=== PATIENT | female | born 1995 | race American Indian/Alaskan Native ===

== ENCOUNTER 2017-01-18 09:58 | Emergency (ER) | payer BC ==
[2017-01-18 10:16] VITALS: O2SAT 100
[2017-01-18 10:34] LABS: RBC URINE < 1 /hpf (0-3); URINE BILIRUBIN NEGATIVE (NEGATIVE); URINE BLOOD NEGATIVE (NEGATIVE); URINE COLOR Yellow (YELLOW); URINE GLUCOSE (UA) NORMAL (Normal); URINE KETONE NEGATIVE (NEGATIVE); URINE LEUKOCYTE ESTERASE NEG Leu/uL (Negative); URINE PROTEIN NEGATIVE (NEGATIVE); WBC URINE < 1 /hpf (0-5)
--- NOTE | 2017-01-18 10:39 | C.PDOC ---
History Of Present Illness 21 yr old female presents to the ER for evaluation of abdominal pain for the past 2-3 weeks. Patient states the pain is mainly lower abdominal. reports she is sexually active, rarely uses protection and last LMP was December 15. Patient denies direct trauma, fever, chills, nausea, vomiting, diarrhea, dysuria , hematuria, back pain, weakness or numbness. Time Seen by Provider: 01/18/17 10:11 Chief Complaint (Nursing): Abdominal Pain History Per: Patient History/Exam Limitations: no limitations Onset/Duration Of Symptoms: Persistent (2-3 weeks) Severity: None Location Of Pain/Discomfort: Diffuse, RLQ, LLQ Past Medical History Reviewed: Historical Data, Nursing Documentation, Vital Signs Vital Signs: Last Vital Signs Temp 98.5 F 01/18/17 11:19 Pulse 95 H 01/18/17 11:19 Resp 22 01/18/17 11:19 BP 125/81 01/18/17 11:19 Pulse Ox 100 01/18/17 11:19 - Medical History PMH: No Chronic Diseases Family History: States: No Known Family Hx - Social History Hx Alcohol Use: No Hx Substance Use: No Review Of Systems Except As Marked, All Systems Reviewed And Found Negative. Constitutional: Negative for: Fever, Chills Gastrointestinal: Positive for: Abdominal Pain. Negative for: Nausea, Vomiting , Diarrhea Genitourinary: Negative for: Dysuria, Hematuria Musculoskeletal: Negative for: Back Pain Neurological: Negative for: Weakness, Numbness Physical Exam - Physical Exam Appears: Non-toxic, No Acute Distress Skin: Warm, Dry, No Rash Head: Atraumatic, Normacephalic Neck: Supple Chest: Symmetrical, No Tenderness Cardiovascular: Rhythm Regular, No Murmur Respiratory: Normal Breath Sounds, No Rales, No Rhonchi, No Stridor, No Wheezing Gastrointestinal/Abdominal: Soft, Tenderness (Mild tenderness diffusly lower abd and mild superpubic tenderness.), No Mass, No Distention, No Guarding, No Rebound Extremity: Normal ROM, No Swelling Neurological/Psych: Oriented x3, Normal Speech, Normal Motor Gait: Steady ED Course And Treatment O2 Sat by Pulse Oximetry: 100 Medical Decision Making Medical Decision Making: PLAN: * HCG Urine * Urinalysis Discussed positive UCG with pt as well as need for US and quant Pt did not want to stay for the testing and signed AMA Disposition - Disposition Referrals: [facility] at [facility] [Outside] Pooja Dooley MD [Staff Provider] - Disposition: AGAINST MEDICAL ADVICE Disposition Time: 11:09 Condition: FAIR Additional Instructions: Return to ED or see your doctor for further evaluation of the pain Instructions: Abdominal Pain in (ED) Forms: Work Excuse - Clinical Impression Clinical Impression: Abdominal pain during - Scribe Statement The provider has reviewed the documentation as recorded by the Audieibkelley Alvarenga Provider Attestation: All medical record entries made by the Audieibkelley were at my direction and personally dictated by me. I have reviewed the chart and agree that the record accurately reflects my personal performance of the history, physical exam, medical decision making, and the department course for this patient. I have also personally directed, reviewed, and agree with the discharge instructions and disposition.
[2017-01-18 11:20] VITALS: BP 125/81; PULSE 95; RESP 22; TEMP 98.5
== END 2017-01-18 11:32 | disposition left against medical advice (07) ==
LOC: C.ER 09:58
DX: O26.891 Other specified pregnancy related conditions, first trimester (principal); R10.30 Lower abdominal pain, unspecified; Z3A.00 Weeks of gestation of pregnancy not specified

== ENCOUNTER 2017-12-27 09:13 | Emergency (ER) | payer BC, MEDICAID ==
[2017-12-27 09:30] VITALS: BMI 21.3
[2017-12-27 09:31] VITALS: BP 142/87; PULSE 100; RESP 16; TEMP 98.2; O2SAT 100
--- NOTE | 2017-12-27 09:35 | C.PDOC ---
History Of Present Illness 22yo female, otherwise well, presents to ER with complaints of headache, and toothache on her left lower mandible, intermittently for the past couple months. Patient states the pain has now radiated to her left neck and now to her left head. She has not been able to follow up with a dentist yet due to issues with appointment times. She has been taking Motrin with no relief of her pain. She denies any fever, chills, nausea, vomiting, shortness of breath or airway compromise. No other complaints. Time Seen by Provider: 12/27/17 09:31 Chief Complaint (Nursing): Headache History Per: Patient Current Symptoms Are (Timing): Still Present Pain Scale Rating Of: 8 Quality: "Pain" Associated Symptoms: denies: Nausea, Vomiting Past Medical History Reviewed: Historical Data, Nursing Documentation, Vital Signs Vital Signs: Last Vital Signs Temp 98.2 F 12/27/17 09:30 Pulse 100 H 12/27/17 09:30 Resp 16 12/27/17 09:30 BP 142/87 12/27/17 09:30 Pulse Ox 100 12/27/17 10:25 - Medical History PMH: No Chronic Diseases Surgical History: No Surg Hx Family History: States: No Known Family Hx - Social History Hx Alcohol Use: No Hx Substance Use: No - Immunization History Hx Tetanus Toxoid Vaccination: No Hx Influenza Vaccination: No Hx Pneumococcal Vaccination: No Review Of Systems Except As Marked, All Systems Reviewed And Found Negative. Constitutional: Negative for: Fever, Chills ENT: Positive for: Other (dental pain). Negative for: Throat Swelling Cardiovascular: Negative for: Chest Pain Respiratory: Negative for: Shortness of Breath Genitourinary: Negative for: Dysuria, Incontinence, Hematuria Neurological: Positive for: Headache Physical Exam - Physical Exam Appears: Non-toxic, No Acute Distress Skin: Normal Color, Warm Head: Normacephalic Eye(s): bilateral: Normal Inspection Ear(s): Bilateral: Normal Teeth: Other (dental decay to molars on lower left and right jaw.) Throat: Normal, No Erythema, No Exudate Neck: Normal ROM, Supple Chest: Symmetrical Cardiovascular: Rhythm Regular Respiratory: Normal Breath Sounds, No Wheezing Back: Normal Inspection, No CVA Tenderness, No Vertebral Tenderness, No Muscle Spasm, No Paraspinal Tenderness Extremity: Normal ROM Neurological/Psych: Oriented x3, Normal Speech, Normal Cognition ED Course And Treatment O2 Sat by Pulse Oximetry: 100 (RA) Pulse Ox Interpretation: Normal Medical Decision Making Medical Decision Making: Impression: Headache Plan: -- Tylenol 975 mg PO -- Tramadol 50 mg PO -- Penicillin 1000 mg PO Patient to be discharged home with prescription for Motrin, Penicillin and Tramadol. Patient informed to follow up with PCP as well as dentist in 2-3 days. Disposition Counseled Patient/Family Regarding: Diagnosis, Need For Followup, Rx Given - Disposition Referrals: [facility] at [facility] [Outside] Disposition: HOME/ ROUTINE Disposition Time: 10:20 Condition: STABLE Additional Instructions: You need to follow up with a dentist. Prescriptions: Ibuprofen [Motrin] 600 mg PO TID #15 tab Penicillin VK [Penicillin VK Tab] 500 mg PO Q6H #40 tab traMADol/Acetaminophen [Ultracet 37.5/325 mg] 1 tab PO TID PRN #15 tab PRN Reason: pain Instructions: Tooth Decay, Adult Forms: General Discharge Instructions, [facility] ([place]), Work Excuse - POA Present On Arrival: None - Clinical Impression Clinical Impression: Headache, Tooth ache - Scribe Statement The provider has reviewed the documentation as recorded by the Scribe (Shayna Byrnes) Provider Attestation: All medical record entries made by the Scribe were at my direction and personally dictated by me. I have reviewed the chart and agree that the record accurately reflects my personal performance of the history, physical exam, medical decision making, and the department course for this patient. I have also personally directed, reviewed, and agree with the discharge instructions and disposition.
== END 2017-12-27 10:32 | disposition home or self-care (01) ==
LOC: C.ER 09:13
DX: R51 Headache (principal); K08.89 Other specified disorders of teeth and supporting structures

== ENCOUNTER 2018-07-05 13:07 | Emergency (ER) | payer BC, MEDICAID ==
[2018-07-05 13:17] VITALS: BMI 19.5
[2018-07-05 13:18] VITALS: TEMP 99.1; O2SAT 100
[2018-07-05] MEDS ORDERED: Sodium Chloride 0.9% 1,000 ML IV ONE (13:55)
[2018-07-05 14:28] LABS: SQUAMOUS EPITHIAL 1 /hpf (0-5); URINE BILIRUBIN NEGATIVE (NEGATIVE); URINE BLOOD NEGATIVE (NEGATIVE); URINE CLARITY Clear (Clear); URINE COLOR Yellow (YELLOW); URINE GLUCOSE (UA) NORMAL (Normal); URINE HYALINE CAST 0-2 /lpf (0-2); URINE LEUKOCYTE ESTERASE NEG Leu/uL (Negative); URINE PROTEIN NEGATIVE (NEGATIVE)
[2018-07-05] MEDS ORDERED: Sodium Chloride 0.9% 1,000 ML ONE (14:55)
[2018-07-05 14:56] LABS: BASO % 0.6 % (0.0-2.0); EOS % 0.3 % (0.0-4.0); HEMOGLOBIN 12.2 g/dL (11.0-16.0); LYMPH # 2.5 K/uL (1.0-4.3); LYMPH % 40.9 % (20.0-40.0); MEAN CELL VOLUME 82.1 fL (81.0-99.0); MEAN CORPUSCULAR HEMOGLOBIN 27.6 pg (27.0-31.0); MEAN CORPUSCULAR HGB CONC 33.6 g/dL (33.0-37.0); MEAN PLATELET VOLUME 10.7 fL (7.2-11.7); MONO # 0.3 K/uL (0.0-0.8); MONO % 5.3 % (0.0-10.0); NEUT # 3.3 K/uL (1.8-7.0); NEUT % 52.9 % (50.0-75.0); NRBC % 0.2 % (0.0-2.0); RBC 4.43 Mil/uL (3.80-5.20); RED CELL DISTRIBUTION WIDTH 12.5 % (11.5-14.5); WHITE BLOOD COUNT 6.2 K/uL (4.8-10.8)
[2018-07-05 15:23] LABS: ALB/GLOB RATIO 1.1 (1.0-2.1); ALBUMIN 4.4 g/dL (3.5-5.0); ALT/SGPT 21 U/L (9-52); AST/SGOT 17 U/L (14-36); BLOOD UREA NITROGEN 11 mg/dL (7-17); CALCIUM 9.1 mg/dl (8.6-10.4); GFR NON-AFRICAN AMERICAN > 60; LIPASE 207 U/L (23-300)
[2018-07-05 15:55] VITALS: BP 113/70; PULSE 82; RESP 20
--- NOTE | 2018-07-05 15:56 | C.PDOC ---
History Of Present Illness 22-year-old female, presents to the emergency department with complaints of RLQ abdominal pain ongoing for the past three weeks. Pain is sharp in nature and not associated with nausea/vomiting/diarrhea. Chief Complaint (Nursing): Abdominal Pain History Per: Patient History/Exam Limitations: no limitations Current Symptoms Are (Timing): Still Present Past Medical History Reviewed: Historical Data, Nursing Documentation, Vital Signs Vital Signs: Last Vital Signs Temp 99.1 F 07/05/18 13:17 Pulse 82 07/05/18 15:54 Resp 20 07/05/18 15:54 BP 113/70 07/05/18 15:54 Pulse Ox 100 07/05/18 15:56 - Medical History PMH: Migraine Family History: States: No Known Family Hx - Social History Hx Alcohol Use: No Hx Substance Use: No - Immunization History Hx Tetanus Toxoid Vaccination: No Hx Influenza Vaccination: No Hx Pneumococcal Vaccination: No Physical Exam - Physical Exam Appears: Non-toxic, No Acute Distress Skin: Normal Color, Warm, Dry, No Rash Head: Atraumatic, Normacephalic Eye(s): bilateral: Normal Inspection, PERRL, EOMI Nose: Normal Oral Mucosa: Moist Lips: Normal Appearing Neck: Normal ROM Cardiovascular: Rhythm Regular, No Murmur Respiratory: Normal Breath Sounds, No Accessory Muscle Use Gastrointestinal/Abdominal: Soft, No Tenderness Back: Normal Inspection Extremity: Normal ROM, No Deformity Neurological/Psych: Oriented x3, Normal Speech ED Course And Treatment - Laboratory Results Result Diagrams: 07/05/18 14:51 07/05/18 14:51 O2 Sat by Pulse Oximetry: 100 Pulse Ox Interpretation: Normal (RA) Disposition - Disposition Referrals: Eden Cardoza MD [Staff Provider] - Disposition: HOME/ ROUTINE Disposition Time: 15:20 Condition: GOOD Additional Instructions: LILIANA MUÑIZ, thank you for letting us take care of you today. Your provider was Gianfranco aPrk DO and you were treated for STOMACH PAIN. The emergency medical care you received today was directed at your acute symptoms. If you were prescribed any medication, please fill it and take as directed. It may take several days for your symptoms to resolve. Return to the Emergency Department if your symptoms worsen, do not improve, or if you have any other problems. Please contact your doctor or call one of the physicians/clinics you have been referred to that are listed on the Patient Visit Information form that is included in your discharge packet. Bring any paperwork you were given at discharge with you along with any medications you are taking to your follow up visit. Our treatment cannot replace ongoing medical care by a primary care provider outside of the emergency department. Thank you for allowing the [facility] team to be part of your care today. Follow up with your primary care doctor in 2-3 days for re-evaluation and further management. Prescriptions: Ibuprofen [Motrin] 600 mg PO Q6 PRN #20 tab PRN Reason: Pain, Moderate (4-7) Instructions: Acute Abdomen (Belly Pain), Adult (DC) Forms: [facility] ([place]) - Clinical Impression Clinical Impression: Abdominal wall pain - Scribe Statement The provider has reviewed the documentation as recorded by the Scribe (Dedrick King) Provider Attestation: All medical record entries made by the Scribe were at my direction and personally dictated by me. I have reviewed the chart and agree that the record accurately reflects my personal performance of the history, physical exam, medical decision making, and the department course for this patient. I have also personally directed, reviewed, and agree with the discharge instructions and disposition.
== END 2018-07-05 16:13 | disposition home or self-care (01) ==
LOC: C.ER 13:07
DX: R10.31 Right lower quadrant pain (principal)
CPT/HCPCS: 80053; 81001; 83690; 85025; 87086; 96361; 96374; 99283; J1885; J7030